=== PATIENT | female | born 1950 | race Caucasian/White ===

== ENCOUNTER 2023-03-18 09:44 | Emergency (ER) | payer OTHER, SELFPAY ==
[2023-03-18 09:50] VITALS: BP 163/73; PULSE 65; RESP 16; TEMP 36.4; O2SAT 100; BMI 25.0
--- NOTE | 2023-03-18 09:54 | DI.RAD.S_ITS ---
PROCEDURE: XR CHEST 2V INDICATIONS: fal, hit chest, palp sternum pain TECHNIQUE: 2 views of the chest were acquired. COMPARISON: None. FINDINGS: Surgical changes and devices: Status post cholecystectomy. Lungs and pleura: Lungs are clear. No pleural effusions or pneumothorax. Mediastinum: Mediastinal contours are normal. Heart size is normal. Bones and chest wall: No suspicious bony abnormalities. No displaced rib fractures. Limited evaluation of the sternum appears intact. Soft tissues appear unremarkable. IMPRESSION: No acute abnormality identified. Dictated by: Remi Chan D.O. on 03/18/2023 at 9:16 Approved by: Remi Chan D.O. on 03/18/2023 at 9:17
[2023-03-18 11:03] VITALS: BP 158/70
--- NOTE | 2023-03-18 11:03 | PC.NURSE ---
Patient tried 3 tylenol last night and they did not help. Normally pain 2/10 but with movement 9/10.
--- NOTE | 2023-03-18 11:15 | ED.FALL ---
HPI - Fall General Chief Complaint: Fall Stated Complaint: fall, chest bone pain T-10 Time Seen by Provider: 03/18/23 11:13 History of Present Illness HPI Narrative: Patient is a healthy 73-year-old female who presents today with chest pain. She reports that she fell and tripped over uneven sidewalk 1 week ago. She has had pain in 1 particular area over her sternum ever since. Hurts to breathe hurts to move hurts to cough. She is not had any fever or chills. She reports that she breathes shallow be secondary to pain. She is only taken Tylenol for pain. Related Data Previous Rx's Medication Instructions Recorded hydrocodone 5 mg-acetaminophen 325 1 tab PO Q6H PRN pain #10 tabs 03/18/23 mg tablet lidocaine 5 % topical patch 1 patch topical DAILY PRN pain #30 03/18/23 ea ondansetron 4 mg disintegrating 4 mg PO Q8H PRN nausea and 03/18/23 tablet vomiting #10 tabs Allergies Allergy/AdvReac Type Severity Reaction Status Date / Time Penicillins AdvReac Verified 03/18/23 11:12 Review of Systems Review of Systems ROS Unobtainable: All systems reviewed & are unremarkable except as noted in HPI and below Exam Initial Vital Signs Initial Vital Signs: Vital Signs Temperature 97.6 F 03/18/23 09:50 Pulse Rate 65 03/18/23 09:50 Respiratory Rate 16 03/18/23 09:50 Blood Pressure 163/73 H 03/18/23 09:50 Pulse Oximetry 100 03/18/23 09:50 Oxygen Delivery Method Room Air 03/18/23 09:50 GENERAL: Alert pleasant 73-year-old female no acute distress HEENT: Head atraumatic,EOMI, pupils reactive, face symmetric, moist mucous membranes CARDIOVASCULAR: Regular rate and rhythm without murmurs, rubs or gallops. Tender to sternum no contusion no erythema no flail chest RESPIRATORY: Breath sounds equal bilaterally, no wheezes rales or rhonchi. EXTREMITIES: Normal range of motion, no clubbing or edema. Neurovascularly intact NEUROLOGICAL: Alert and oriented x4. SKIN: Warm, dry, no laceration, no petechiae, no rashes or lesions. Course Orders Ordered: ED Orders 03/18/23 09:54 Chest [XR chest 2V] Stat Discontinued Medications Hydrocodone Bitart/Acetaminophen (Hydrocodone/Acet 5/325 Tablet) 1 tab PO NOW ONE Stop: 03/18/23 11:12 Last Admin: 03/18/23 11:16 Dose: 1 tab Documented By: MEGHANA Ondansetron HCl (Ondansetron 4 Mg Odt) 4 mg SL NOW ONE Stop: 03/18/23 11:12 Last Admin: 03/18/23 11:16 Dose: 4 mg Documented By: MEGHANA Vital Signs Vital signs: Vital Signs - 8 hr 03/18/23 11:03 03/18/23 11:44 Blood Pressure 158/70 H 154/78 H MDM - Fall Imaging Data Chest x-ray: Radiologist's Impression: PROCEDURE:? XR CHEST 2V ? INDICATIONS:? fal, hit chest, palp sternum pain ? TECHNIQUE:? 2 views of the chest were acquired.? ? COMPARISON:? None. ? FINDINGS:? ? Surgical changes and devices:? Status post cholecystectomy.? ? Lungs and pleura:? Lungs are clear.? No pleural effusions or pneumothorax.? ? Mediastinum:? Mediastinal contours are normal.? Heart size is normal.? ? Bones and chest wall:? No suspicious bony abnormalities.? No displaced rib fractures.? Limited evaluation of the sternum appears intact.? Soft tissues appear unremarkable.? ? IMPRESSION:? ? No acute abnormality identified. ? ? Dictated by: Remi Chan D.O. on 03/18/2023 at 9:16 MDM Narrative Medical decision making narrative: Patient is 73-year-old female presents today after mechanical fall 1 week ago with ongoing chest discomfort. It is in 1 particular area over the sternum nonradiating pain is definitely reproducible to palpation. Chest x-ray is negative I reviewed it myself and I do not see any sternal fracture. I suspect that she has costochondritis. Low suspicion for cardiac contusion vitals are stable. Discussed with her on incentive spirometer pain control return to the ER. Discharge Plan Departure Patient Disposition: Home Clinical Impression: Acute costochondritis, Contusion of sternum Instructions: Costochondritis, DI for Sternum Contusion Activity Restrictions/Additional Instructions: *You have been diagnosed with sternal contusion, costochondritis *What to do: At this time your x-ray is negative. Please use your incentive spirometer about 10 times an hour or per respiratory instructions. This will help prevent pneumonia. Recommend getting a small pillow to help splint with breathing and moving. *Continue to take medications as directed Lidocaine patch place directly over area of pain for 12 hours and then remove [place] 1 tablet every 6 hours if needed for severe pain Zofran 4 mg every 8 hours if needed for nausea or vomiting Motrin 600 mg every 6 hours if needed for [id number]-[id number] pain *Follow up with your primary care provider in 2-3 days or call [phone] *Return to ER if you should have increasing pain fever chills cough shortness of breath or any new, worsening or concerning symptoms CONTROLLED SUBSTANCE DISCHARGE (Narcotoic/benzodiazepine/Flexeril/Phenergan) 1. You have been prescribed narcotic medications, it does have acetaminophen/Tylenol/paracetamol in it, DO NOT TAKE MORE THAN 4,00mg in 24 hours of Tylenol. TRAMADOL DOES NOT CONTAIN TYLENOL 2. Please understand that we cannot provide further refills of narcotics, benzodiazepines or controlled substances through the ED and her pain management will need to be through your provider. 3. While on these medications you cannot drive or operate heavy machinery. 4. You cannot sign legal documents or perform any duties such as this. 5. As long as you're taking opiate pain medications he should also be taking a stool softener such as Colace, Dulcolax, MiraLAX or prune juice, to help avoid constipation. Prescriptions: New hydrocodone-acetaminophen 5-325 mg tablet 1 tab PO Q6H PRN (Reason: pain) Qty: 10 0RF lidocaine 5 % adhesive patch,medicated 1 patch topical DAILY PRN (Reason: pain) Qty: 30 0RF Rx Instructions: leave on most painful area for up to 12 hrs then remove ondansetron 4 mg tablet,disintegrating 4 mg PO Q8H PRN (Reason: nausea and vomiting) Qty: 10 0RF Stand Alone Forms: Patient Portal/API
[2023-03-18] MEDS: ONDANSETRON 4 MG ODT SL (11:16)
[2023-03-18] MEDS: HYDROCODONE/ACET 5/325 TABLET 1 TAB PO (11:16)
[2023-03-18 11:44] VITALS: BP 154/78
== END 2023-03-18 11:45 | disposition home or self-care (01) ==
PROVIDERS: Emergency Provider Emergency Medicine
DX: S20.214A Contusion of middle front wall of thorax, initial encounter (principal); M94.0 Chondrocostal junction syndrome [Tietze]; W01.0XXA Fall on same level from slipping, tripping and stumbling without subsequent striking against object, initial encounter
CPT/HCPCS: 71046; 99283